=== PATIENT | female | born 1940 | race Native Hawaiian/Other Pacific Islander ===

== ENCOUNTER 2019-08-20 08:46 | Outpatient (CLI) | payer BC | END 2019-08-20 19:45 | disposition home or self-care (01) | LOC: US 08:46 | DX: R79.89 Other specified abnormal findings of blood chemistry (principal) ==

== ENCOUNTER 2020-04-27 13:41 | Outpatient (CLI) | payer BC | END 2020-04-27 23:30 | disposition home or self-care (01) | LOC: RAD 13:41 | DX: M25.571 Pain in right ankle and joints of right foot (principal) ==